=== PATIENT | male | born 2005 | race Caucasian/White ===

== ENCOUNTER 2023-06-15 03:54 | Emergency (ER) | payer MEDICAID ==
[~2023-06-15] VITALS: Ht 172.7 cm; Wt 100.0 kg
[2023-06-15 04:06] VITALS: O2SAT 98
[2023-06-15 05:13] LABS: CLARITY URINE CLEAR (CLEAR); COLOR URINE DARK YELLOW (YELLOW); GLUCOSE URINE NEGATIVE (NEGATIVE); KETONES URINE TRACE (NEGATIVE); LEUKOCYTE ESTERASE URINE NEGATIVE (NEGATIVE); NITRITE URINE NEGATIVE (NEGATIVE); OCCULT BLOOD URINE NEGATIVE (NEGATIVE); PH URINE 5.5 (4.5-8.0); PROTEIN URINE 1+ (NEGATIVE); SPECIFIC GRAVITY URINE 1.029 (1.005-1.030)
[2023-06-15 05:16] LABS: BACTERIA URINE NONE SEEN; SQUAMOUS EPITHELIAL CELL URINE NONE SEEN /lpf (RARE/1+); WBC URINE 0-2 /hpf (0-2); YEAST URINE NONE SEEN
[2023-06-15 05:44] LABS: RBC URINE 0-2 /hpf (0-2)
[2023-06-15] MEDS ORDERED: CEFTRIAXONE SODIUM 500 MG/VIAL IM ONE (06:45)
[2023-06-15] MEDS ORDERED: DOXY100C5 MT (08:05)
[2023-06-15] MEDS ORDERED: IBUP-2029 MT (08:05)
[2023-06-15 08:27] VITALS: BP 121/78; PULSE 84; RESP 19; TEMP 98.2
[2023-06-18 13:07] LABS: CHLAMYDIA TRACHOMATIS NAA Negative (Negative); NEISSERIA GONORRHOEAE NAA Negative (Negative)
== END 2023-06-15 08:27 | disposition home or self-care (01) ==
LOC: ER 03:54
DX: N50.812 Left testicular pain (principal)
CPT/HCPCS: 87491; 87591; 81003; 93976; 76870; 96372; 99285; J0696; Z7610